=== PATIENT | male | born 2000 | race Caucasian/White ===

== ENCOUNTER 2019-08-26 21:49 | Emergency (ER) | payer BC ==
[~2019-08-26] VITALS: Ht 182.9 cm; Wt 66.5 kg
[2019-08-26 21:52] VITALS: BP 123/84
--- NOTE | 2019-08-26 22:12 | NUR ---
SANDEE RN: PT PRESENTS WITH L EAR PAIN SINCE THIS MORNING. PAIN RADIATES INTO JAW. PT ALSO C/O NECK PAIN FOR APPROX 1 WEEK. DENIES FEVERS OR CHILLS. NO S/S OF ACUTE DISTRESS. CALL LIGHT IN REACH. AWAITING PROVIDER EVAL.
--- NOTE | 2019-08-26 23:00 | NUR ---
Patient given discharge instructions and they have confirmed that they understand the instructions. Patient ambulatory with steady gait.
== END 2019-08-26 23:02 | disposition home or self-care (01) ==
LOC: ED 22:28
DX: M54.2 Cervicalgia (principal); H92.02 Otalgia, left ear
CPT/HCPCS: 99283